=== PATIENT | female | born 1990 | race Caucasian/White ===

== ENCOUNTER → 2019-09-20 14:50 | Outpatient (CLI) | payer OTHER, SELFPAY ==
[2019-09-20 16:35] LABS: Hematocrit 35.6 % (36-46); Hemoglobin 12.5 g/dL (12.0-16.0)
[2019-09-20 17:16] LABS: GTT (PREG) 1 Hour PP 50gm Dose 94 mg/dL (76-139)
== END ==
PROVIDERS: PCP Family Medicine; Visit Provider Obstetrics & Gynecology
DX: Z34.90 Encounter for supervision of normal pregnancy, unspecified, unspecified trimester (principal)
CPT/HCPCS: 36415; 82950; 85014; 85018

== ENCOUNTER → 2019-11-22 14:45 | Outpatient (CLI) | payer OTHER, SELFPAY ==
[2019-11-23 16:58] LABS: Strep Grp B PCR NEG for Grp B Strep
== END ==
PROVIDERS: PCP Family Medicine; Visit Provider Obstetrics & Gynecology
DX: Z34.03 Encounter for supervision of normal first pregnancy, third trimester (principal); Z3A.35 35 weeks gestation of pregnancy
CPT/HCPCS: 87653

== ENCOUNTER 2019-12-23 15:38 | Outpatient (CLI) | payer OTHER, SELFPAY ==
--- NOTE | 2019-12-25 09:27 | PM.OBTRLD ---
Visit Information Visit Information Date of evaluation: 12/23/19 Primary OB Provider: Kalee Borjas Reason for Evaluation: Yes non-stress test Comments/Additional reasons for admission: Patient presents after 04/25 BPP Vital Signs Vital Signs: BP 136/80 per nursing staff telephone report, [facility] Surgical History History of appendectomy (Acute ~02/16/14) History of placement of ear tubes (Acute ~2007) [place] teeth extracted (Acute ~2016) Family History Sister Seizures Hyperlipidemia Father Hyperlipidemia Social History marital status: household members: spouse education level: college occupational status: employed current occupational exposures/hazards: No special dada needs: No Smoking Status: Never smoker Review of Systems Constitutional Constitutional: Reports system reviewed and no additional complaints, except as documented Evaluation Evaluation Baseline heart rate: 135 Variability: Average (6-10) monitor accelerations: Present monitor decelerations: Absent Category of Tracing: I Diagnosis, Plan/Disposition Plan/Disposition Plan: Home with scheduled f/u in3 days OB Disposition: home
== END 2019-12-23 16:29 | disposition home or self-care (01) ==
LOC: LABOR 15:44 → OB 12-24 10:46
PROVIDERS: PCP Family Medicine; Referring Provider Obstetrics & Gynecology; Visit Provider Obstetrics & Gynecology
DX: O48.0 Post-term pregnancy (principal); Z3A.40 40 weeks gestation of pregnancy
CPT/HCPCS: 59025; G0378; G0379

== ENCOUNTER → 2019-12-26 11:36 | Outpatient (CLI) | payer OTHER, SELFPAY | PROVIDERS: PCP Family Medicine; Referring Provider Obstetrics & Gynecology; Visit Provider Obstetrics & Gynecology | DX: O48.0 Post-term pregnancy (principal); Z3A.40 40 weeks gestation of pregnancy ==

== ENCOUNTER 2019-12-26 11:40 | Outpatient (CLI) | payer OTHER, SELFPAY ==
--- NOTE | 2019-12-26 11:42 | DI.US.S_ITS ---
PROCEDURE: US OB BIOPHYSICAL PROFILE INDICATIONS: POST DATES OUTSIDE/PRIOR DATING DATA: Last menstrual period (LMP): 03/17/2019. LMP-based estimated date of delivery (SANDRA): 12/22/2019. First dating scan (date and location): n.a. Estimated date of delivery (SANDRA) from first dating scan: n.a. TECHNIQUE: Real-time scanning was performed of the fetus for biophysical profile, with image documentation. Color and pulse Doppler interrogation was also performed of the umbilical artery near its insertion into the placenta. Endovaginal scanning: none. COMPARISON: [facility], , OB >= 14 WEEKS FETUS, 11/27/2019, 8:32. FINDINGS: General: A single living intrauterine gestation is present. Presentation: Vertex. Placenta: Placental position is posterior right, without previa. Amniotic fluid index: 13.0 cm, normal range is 5-24 cm; largest pocket 5.1 cm. heart rate: 153 beats per minute. Maternal cervical canal: not visualized. Estimated gestational age (clinical): 40 weeks 4 days. Biophysical profile: Tone: 2 points. Movement: 2 points. Respiration: 2 points. Largest pocket of fluid: 2 points. IMPRESSION: 1. A single living intrauterine gestation. 2. biophysical profile 8 out of 8. Dictated by: Amelia Deng M.D. on 12/26/2019 at 13:36 Approved by: Amelia Deng M.D. on 12/26/2019 at 13:40
== END 2019-12-26 13:30 | disposition home or self-care (01) ==
LOC: LABOR 12:21 → OB 12-27 08:29
PROVIDERS: PCP Family Medicine; Referring Provider Obstetrics & Gynecology; Visit Provider Obstetrics & Gynecology
DX: O48.0 Post-term pregnancy (principal); Z3A.40 40 weeks gestation of pregnancy
CPT/HCPCS: 59025; 76819; G0378; G0379

== ENCOUNTER → 2019-12-27 15:34 | Outpatient (CLI) | payer OTHER, SELFPAY ==
[2019-12-29 06:14] LABS: COVID19 Sendout Not Detected (Not Detected)
== END ==
PROVIDERS: PCP Family Medicine; Visit Provider Registered Nurse
DX: Z20.828 Contact with and (suspected) exposure to other viral communicable diseases (principal)
CPT/HCPCS: 87635

== ENCOUNTER 2019-12-29 18:55 | Inpatient (IN) | payer OTHER, SELFPAY ==
[2019-12-29] MEDS: DINOPROSTONE VAG (CERVIDIL) 10 MG VAG (20:09)
[2019-12-29 20:21] LABS: Add Manual Diff / Slide Review NO; Basophils Absolute Auto 200 /uL (0-100); Basophils Percent Auto 1.1 % (0-2); Eosinophils Absolute Auto 100 /uL (0-450); Eosinophils Percent Auto 0.9 % (2-4); Hematocrit 38.1 % (36-46); Hemoglobin 13.1 g/dL (12.0-16.0); Lymphocytes Absolute Auto 1900 /uL (1100-4500); Lymphocytes Percent Auto 12.9 % (25-40); Mean Corpuscular HGB Conc 34.4 % (30-36); Mean Corpuscular Hemoglobin 31.2 PG (26-34); Mean Corpuscular Volume 90.6 fL (80-100); Monocytes Absolute Auto 1100 /uL (0-900); Neutrophils Absolute Auto 11800 /uL (1500-7000); Neutrophils Percent Auto 78.1 % (50-75); Platelet Count 337 X10^3/uL (150-400); Red Cell Distribution Width 13.1 % (11.6-14.8)
[2019-12-29 21:46] VITALS: BP 132/79
--- NOTE | 2019-12-30 08:08 | P.HPOB_ITS ---
OB HPI Date/Time Date of admission: 12/29/19 Date Patient Seen: 12/30/19 Time Patient Seen: 07:45 History of Present Condition Chief complaint: EVAL OF LABOR : 1 Para: 0 Estimated Date of Delivery: 12/22/19 Estimated Gestational Age (weeks): 41 Narrative: Carmelita Westfall is a 29 year old @41+1 admitted for postdates induction of labor. She reports feeling well on admission, with no complaints obstetrical or otherwise. She was induced with a cervidil which spontaneously fell out at 1AM, at which point she was jose angel q3-4 and was 3.5cm per nursing report. She SROMed for light meconium between midnight and 1AM. She received an epidural early this AM when contractions became more intense. She reports feeling well now, with no obstetrical complaints and no PIH symptoms. Her has been uncomplicated except for a transfer of care in the mid 2nd trimester, with appropriate and reassuring postdates testing. Her history is otherwise significant only for a laprascopic appendectomy in 2013. Indications Indication for induction OB: post dates History of Present care: good care Dating criteria: LMP confirmed by 1st trimester US Ultrasounds: normal 1st trimester US and normal mid trimester US Obstetrical complications: none Medical complications: none Preadmission Labs Blood type: O (+) positive -: Antibody screen: negative, GBS status: negative, HBsAG: negative, HIV: negative and RPR/VDLR: negative -: Chlamydia screen: not detected and Gonorrhea screen: not detected -: Rubella: immune and Varicella: immune Integrated screen: negative 1 hr GTT: 94 Evaluation Evaluation Baseline heart rate: 150 Variability: Average (6-10) monitor accelerations: Absent monitor decelerations: Absent Category of Tracing: I Cervical dilation (cm): 4 Cervical effacement (%): 100 station: -1 Laboratory results: Laboratory Tests 12/29/19 12/29/19 20:10 20:10 WBC 15.0 H RBC 4.20 Hgb 13.1 Hct 38.1 MCV 90.6 MCH 31.2 MCHC 34.4 RDW 13.1 Plt Count 337 Neut % (Auto) 78.1 H Lymph % (Auto) 12.9 L [place] % (Auto) 7.0 Eos % (Auto) 0.9 L Baso % (Auto) 1.1 Neut # (Auto) 79708 H Lymph # (Auto) 1900 [place] # (Auto) 1100 H Eos # (Auto) 100 Baso # (Auto) 200 H Blood Type O Positive Antibody Screen Negative Non-invasive Membranes Rupture Test: positive (performed overnight) [facility] Surgical History History of appendectomy (Acute ~02/16/14) History of placement of ear tubes (Acute ~2007) [place] teeth extracted (Acute ~2016) Family History Sister Seizures Hyperlipidemia Father Hyperlipidemia Social History marital status: household members: spouse education level: college occupational status: employed current occupational exposures/hazards: No special dada needs: No Smoking Status: Never smoker Meds Home Medications and Allergies Home Medications Medication Instructions Recorded Confirmed Type prenat.vits,karen,dad-vlov-vtaxa 1 tab PO DAILY 08/20/19 12/04/19 History Double Electric breast Pump and #1 each 11/15/19 12/04/19 Rx Supplies Breast Pump #1 ea 11/25/19 12/04/19 Rx Allergies Allergy/AdvReac Type Severity Reaction Status Date / Time No Known Drug Allergies Allergy Verified 12/29/19 19:20 Review of Systems Constitutional Constitutional: Reports system reviewed and no additional complaints, except as documented Cardiovascular Cardiovascular: Reports system reviewed; no additional complaints, except as d ocumented Respiratory Respiratory: Reports system reviewed and no additional complaints, except as documented Gastrointestinal Gastrointestinal: Reports system reviewed and no additional complaints, except as documented Genitourinary Genitourinary: Reports system reviewed and no additional complaints, except as documented Exam Vital Signs (past 8 hours): 111/68, HR 65 Const General: cooperative, healthy appearing and comfortable GI Palpation: soft and No tender External Female Exam: external appearance normal Objective Labs Result Diagrams: 12/29/19 20:10 Labs: Laboratory Results - last 24 hr 12/29/19 12/29/19 20:10 20:10 WBC 15.0 H RBC 4.20 Hgb 13.1 Hct 38.1 MCV 90.6 MCH 31.2 MCHC 34.4 RDW 13.1 Plt Count 337 Neut % (Auto) 78.1 H Lymph % (Auto) 12.9 L [place] % (Auto) 7.0 Eos % (Auto) 0.9 L Baso % (Auto) 1.1 Neut # (Auto) 22279 H Lymph # (Auto) 1900 [place] # (Auto) 1100 H Eos # (Auto) 100 Baso # (Auto) 200 H Blood Type O Positive Antibody Screen Negative Assessment and Plan Assessment and Plan Assessment and Plan narrative: This patient is a 29yo @41+1 presenting for IOL, with cervidil overnight and SROM for light mec. Patient has EFW with reassu ring features, for repositioning, IVF, and pitocin per protocol this AM. - cEFM, toco - clear liquid diet - pitocin per protocol - CBC, T&S ordered
[2019-12-30] MEDS: LACTATED RINGERS 1,000 ML 100 ML IV ×2 (08:43→13:30)
[2019-12-30] MEDS: OXYTOCIN PREMIX 30 UNIT/500 ML PLAST..BAG IV (08:44)
--- NOTE | 2019-12-30 09:59 | PM.OBPNLAB ---
Date/Time Date Patient Seen: 12/30/19 Time Patient Seen: 10:15 Pain Control Pain control: epidural Pelvic Exam Dilation (cm): 5 Effacement (%): 100 station: -1 Amniotic membrane status: Ruptured Comments: forebag ruptured Contractions Contractions on admission: irregular Pitocin rate (mU/min): 4 Contraction frequency (min): 4 Contraction pattern: Irregular Status status: Category ll Heart Rate Baseline: 150 Monitor Accelerations: Absent Monitor Decelerations: Late Monitor Variability: Minimal Comments: Pitocin turned off, patient rolled, O2 via nasal cannula applied Assessment and Plan Assessment: induction ongoing Comments: Patient with cat 2 EFM with concerning features. Pitocin turned off, conservative measures as above. Minimal cervical change. Discussed with patient that baby would be allowed to recover, with further plan to be discussed once reassuring features return.
--- NOTE | 2019-12-30 12:09 | P.PNOB_ITS ---
Date/Time Date Patient Seen: 12/30/19 Time Patient Seen: 12:09 Pain Control Pain control: epidural Comments: VSS Pelvic Exam Dilation (cm): 5 Effacement (%): 100 station: -1 Amniotic membrane status: Ruptured (light meconium) Comments: RUTH presentation, ballotable Contractions Pitocin rate (mU/min): 0 Contraction frequency (min): 5 Contraction pattern: Regular Status status: Category ll Heart Rate Baseline: 155 Monitor Accelerations: Absent Monitor Decelerations: Late Monitor Variability: Moderate Comments: Intermittent shallow late decels, moderate variability, +scalp stim Assessment and Plan Assessment: other Plan: Comments: This patient continues to have a cat 2 EFM, though with improved moderate variability. The pitocin is now off, the patient is rolled to her side, and is receiving nasal O2. She has made minimal cervical change on her own this morning, and her EFM is such that pitocin could not be safely resumed. We discussed the option of starting pitocin but the expected result of a tracing with more concerning features. We discussed proceeding to section, with the risk of infection, bleeding, and damage to bowel and bladder, with risks in future pregnancies including placentation abnormalities and risks of vs. repeat c section. The patient and her partner vocalized understanding, and all questions were answered and consent signed. The patient reports that she would like to proceed with the method of delivery with the least risk to the fetus, which at this time is C section. - OR and anesthesiologist production packager notified - For 2g IV ancef, 500mg IV azithromycin.
[2019-12-30] MEDS: AZITHROMYCIN 500 MG in DEXTROSE 5% IN WATER 250 ML IV (12:48)
--- NOTE | 2019-12-30 13:01 | SUR.OPER ---
Supine on Padded OR bed, head on pillow, safety belt at thigh, arms secured on padded arm boards at <90 degrees abduction. Bump under right buttock. Legs uncrossed with pillow under knees, gel pad to heels, tape over blanket to lower legs.
--- NOTE | 2019-12-30 13:03 | SUR.OPER ---
FHT's 152. Cord blood x2 and placenta to OB with OB Rn
[2019-12-30] MEDS: CEFAZOLIN 2 GM/100 ML FROZ.PIGGY IV (13:05)
--- NOTE | 2019-12-30 13:15 | SUR.OPER ---
TOB live female [id number]
[2019-12-30 13:59] VITALS: BP 112/62; PULSE 85; RESP 19; TEMP 37; O2SAT 96
--- NOTE | 2019-12-30 14:03 | PM.OP.1 ---
Operative Date/Time/Diagnoses Date of procedure: 12/30/19 Time of procedure: 14:03 Pre-op diagnosis: Cat 2 EFM, intolerance of labor Post-op diagnosis: same Procedure & Clinicians Procedure: primary section Same procedure as scheduled: Yes Indications: intolerance of labor, cat 2 EFM Surgeon: Kalee Borjas Buy Boat Operator: Yvette Holcomb Anesthesia Type: Epidural Operative Notes Findings: Normal uterus, tubes, and ovaries. Female in cephalic presentation. Apgars 8+8, weight 7#6. Closure Type: primary Specimen(s): other (Cord blood gas) Estimated Blood Loss (mL): 500 Procedure in detail: BL: 500ccs Fluids: 1500ccs LR UOP: 200ccs Findings: Female infant in cephalic presentation, Apgars 8+8, weight 7#6, normal uterus, tubes, ovaries. Procedures: The patient was taken to the operating room where epidural anesthesia was bolused and found to be adequate. She was prepped and draped in the normal sterile fashion in the dorsal supine position with a leftward tilt. A Pfannenstiel skin incision was made with a scalpel and carried through to the underlying layer of fascia. The fascia was incised in the midline and the incision extended laterally with Saeed scissors. The inferior aspect of this incision was grasped with Saumya clamps, elevated. and the underlying rectus muscles dissected off bluntly. Attention was then turned to the superior aspect of this incision which, in a similar fashion, was grasped, tented up with the Saumya clamps, and the rectus muscles dissected off bluntly. The rectus muscles were then in the midline, and the peritoneum identified, tented up, and entered sharply with Metzenbaum scissors. The peritoneal incision was extended superiorly and inferiorly with good visualization of the bladder. The bladder blade was inserted and the vesicouterine peritoneum identified, grasped with pickups, and entered sharply with the Metzenbaum scissors. This incision was extended laterally, and the bladder flap created digitally. The bladder blade was then reinserted and the lower uterine segment incised in transverse fashion with the scalpel. The uterine incision was bluntly extended laterally. The bladder blade was removed, and the 's head delivered atraumatically. After 45 seconds of delayed cord clamping, the cord was clamped and cut. The nose and mouth were suctioned with a bulb syringe, and the was handed off to awaiting pediatricians. The placenta was then removed spontaneously, and the uterus was exteriorized and cleared of all clots and debris. The uterine incision was repaired with 1-0 chromic in a running, locked fashion a 2nd layer of the same suture was used to obtain excellent hemostasis. The uterus was returned to the abdomen, and the gutters were cleared of all clots and debris. The bladder flap was closed with 3-0 vicryl in a running fashion, the peritoneum was closed with 3-0 Vicryl, and the fascia reapproximated with 0 Vicryl in a running fashion. The subcutaneous layer was placed with 3 0 Vicryl in an interrupted fashion and the skin was closed with 4-0 biosyn in a running fashion. The patient tolerated the procedure well sponge lap and needle counts were correct x2. 2 g of Ancef and 500mg Azithromycin were given at commencement of the case. The patient was taken to the recovery room in stable condition. Complications: none Post-operative Condition: stable Disposition: PACU Plan for aftercare: Transfer to &D
[2019-12-30 14:04] VITALS: BP 124/65; PULSE 80; RESP 16; O2SAT 97
[2019-12-30 14:09] VITALS: BP 126/63; PULSE 86; RESP 16; O2SAT 98
[2019-12-30 14:12] VITALS: BP 104/63; PULSE 78; RESP 17; O2SAT 98
[2019-12-30 14:14] VITALS: BP 114/63; PULSE 82; RESP 16; O2SAT 99
[2019-12-30] MEDS: ONDANSETRON 4 MG/2 ML INJ IV (14:24)
[2019-12-30 14:45] VITALS: BP 124/65; PULSE 72; RESP 16; O2SAT 99
--- NOTE | 2019-12-30 15:00 | SUR.PHASEI ---
late entry 1359: upon arrival to PACU , patient with GCS 15; patient noted to have mild drooping of right eye and c/o tingling to right arm. Anesthesia aware of symptoms. Patient denies headache or blurred vision. 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 Patient has limited movement to lower extremities due to epidural given pre-op. Will continue to monitor.
--- NOTE | 2019-12-30 15:04 | SUR.PHASEI ---
1415 late entry. Patient still c/o tingling to right arm but states that symptoms seem to be resolving some. Droop remains to right eye but symptoms have not worsened since first assessment. GCS 15. VSS.
--- NOTE | 2019-12-30 15:05 | SUR.PHASEI ---
1440 late entry: Neuro remains as previous with no worsening of symptoms. Patient states that right arm tingling seems to be subsiding. Right eye droop remains same as previous. No redness or drainage noted. Denies headache or blurred vision.
[2019-12-30] MEDS: KETOROLAC 30 MG/ML VIAL IV (18:00)
[2019-12-31] MEDS: KETOROLAC 30 MG/ML VIAL IV ×3 (00:26→15:06)
[2019-12-31 07:15] LABS: Hematocrit 31.2 % (36-46); Hemoglobin 10.7 g/dL (12.0-16.0)
[2019-12-31] MEDS: DOCUSATE 250 MG CAPSULE PO (07:47)
--- NOTE | 2019-12-31 10:06 | PM.OBPN.1 ---
Subjective - OB Subjective Patient comments: no complaints, pain well controlled, incisional pain, tolerating diet and flatus present baby status: doing well and nursing well [place] feeding status: exclusively breast feeding Narrative: This patient is a 29yo POD#1 s/p pCS for intolerance of labor in the setting of a postdates induction. The patient reports feeling well this AM, just finished a shower, is ambulating well, eating, passing gas and voiding, has mild lochia. Patient is without complications. Patient considering discharge today vs. tomorrow, discussed postoperative precautions and discharge precautions along with incision care. Date Patient Seen: 12/31/19 Time Patient Seen: 10:15 Exam Vital Signs (past 8 hours): 114/63, HR 78, T 98.8F Oxygen Delivery Method Room Air Const General: cooperative, healthy appearing and comfortable Resp Effort & Inspection: normal respiratory effort Auscultation: clear to auscultation bilaterally Cardio Rate: regular rate Rhythm: regular rhythm GI Inspection: incision (c/d/i, covered by clean bandage) Palpation: soft and No tender Skin General: no rashes or lesions noted Objective Labs Result Diagrams: 12/31/19 07:09 Labs: Laboratory Results - last 24 hr 12/31/19 07:09 Hgb 10.7 L Hct 31.2 L Assessment & Plan Plan day: 1 plan OB: routine postop care Comments: Patient reports feeling well, uneventful recovery. Continue current management. Time Spent With Patient Time: Total time spent is greater than 50% in coordination of care (as documented) at patient's floor/unit and/or counseling patient: Time with patient: 15-24 minutes
[2019-12-31 18:11] VITALS: TEMP 37.9
[2019-12-31] MEDS: ACETAMINOPHEN 325 MG TABLET 650 MG PO (18:11)
[2019-12-31] MEDS: IBUPROFEN 600 MG TABLET PO (23:01)
[2020-01-01] MEDS: IBUPROFEN 600 MG TABLET PO (08:35)
[2020-01-01] MEDS: DOCUSATE 250 MG CAPSULE PO (08:36)
--- NOTE | 2020-01-01 09:12 | P.PNOB_ITS ---
Subjective - OB Subjective Patient comments: no complaints, pain well controlled, incisional pain, tolerating diet and flatus present baby status: doing well [place] feeding status: exclusively breast feeding Narrative: Patient is POD#2 s/p pCS for intolerance of labor in the setting of postdates induction. Patient is only using motrin for pain control, reports good pain control. Is ambulating, voiding, tolerating PO. Mild lochia. No other complaints. Date Patient Seen: 01/01/20 Time Patient Seen: 09:12 Exam Vital Signs (past 8 hours): T 98.8F, 123/70, HR 73. Per nursing staff, mildly elevated temps overnight on all patients, resolved with new thermometer and no clinical signs of infection. Oxygen Delivery Method Room Air Const General: cooperative, healthy appearing, comfortable and well developed Resp Auscultation: clear to auscultation bilaterally Cardio Rate: regular rate Rhythm: regular rhythm GI Inspection: incision (c/d/i, covered by clean bandage) Palpation: soft and tender (mild, fundal) Objective Labs Result Diagrams: 12/31/19 07:09 Assessment & Plan Plan day: 2 plan OB: routine postop care Comments: Patient is recovering well, meeting postoperative goals without complication. Postoperative instructions were discussed, and the patient vocal ized understanding. Patient will return to clinic in 1 week for incision check, encouraged to call or come in with any questions or new symptoms. Time Spent With Patient Time: Total time spent is greater than 50% in coordination of care (as documented) at patient's floor/unit and/or counseling patient: Time with patient: 15-24 minutes
--- NOTE | 2020-01-01 09:40 | PM.OBDS.1 ---
Discharge Providers Provider Date of admission: 12/29/19 18:55 Discharge Date: 01/01/20 Primary care physician: Ronda Kramer DO Consults: 12/30/19 15:37 Consult to Roving Teller Routine Comment: Discharge provider: Kalee Borjas MD Summary Hospital Course Date Patient Seen: 01/01/20 Time Patient Seen: 09:15 Procedures: primary section Hospital Course: This patient is a 29yo G1 now P1, admitted for postdates induction after an otherwise uncomplicated . Patient had persistent cat 2 tracing in the setting of 5cm dilation, despite all conservative interventions and despite onset of spontaneous labor after induction. She was taken for an uncomplicated primary section and delivered of a healthy baby girl, weight 7#6, apgars 8+8. Her recovery was uneventful, and she was discharged with routine precautions on POD#2. Peripartum Data Infant Delivery Method: Section complications: none [place]: Gender: Female Disposition of : home Discharge Diagnosis (1) deliv NOS-unsp: Start Date: 12/30/19 Start Time: 12:00 Status: Acute Status at Discharge Cognitive/behavioral status at discharge: oriented Functional status at discharge: independent ambulation Overall status at discharge: patient is progressing back to baseline Time Spent with Patient Time attestation: Total time spent providing and/or coordinating discharge services: Time spent: Greater than 30 minutes Objective Labs Result Diagrams: 12/31/19 07:09 Exam Vital Signs (past 8 hours): Oxygen Delivery Method Room Air Discharge Plan Discharge Plan Patient Disposition: Home Discharge orders & Medications Prescriptions: New oxycodone 5 mg tablet 5 mg PO Q8H PRN (Reason: pain) Qty: 7 RF: 0 Continued (DME) Double Electric breast Pump and Supplies See Rx Instructions .ROUTE .MEDSUPPLY Qty: 1 RF: 0 (DME) Breast Pump Qty: 1 RF: 0 prenat.vits,karen,zhd-wzfi-qyojx Tablet 1 tab PO DAILY RF: 0 Follow up/Referrals: Kalee Borjas MD [Physician] - 2 Weeks (Incision check: please f/u w/ Dr. Borjas on January 07 @ 10:15 am. Please wait in your car and call [phone] on arrival.) Ronda Kramer DO [Primary Care Provider] - Diet/Activity/Treatments Diet: Regular Activity: No lifting more than 10 lbs for 6 weeks. Nothing in the vagina for 6 weeks. If you have increasing bleeding, fevers, chills, nausea, vomiting, headaches, or any other symptoms or concerns, call the clinic number or come to the emergency room. Skin/Wound/Dressing Care Dressing: To be removed in the office in 1 week. Visit Report/Discharge Packet Instructions: DI for Stand Alone Forms: Discharge: Care Discharge Data Primary Care Provider: Ronda Kramer
== END 2020-01-01 11:37 | disposition home or self-care (01) | DRG 788 ==
PROVIDERS: Admitting Provider Obstetrics & Gynecology; PCP Family Medicine; Referring Provider Obstetrics & Gynecology; Visit Provider Obstetrics & Gynecology
PROC: 10D00Z1 Extraction of Products of Conception, Low, Open Approach (ICD-10-PCS; CPT 59514; principal; 2019-12-30 12:00)
DX: O48.0 Post-term pregnancy (principal); O36.8330 Maternal care for abnormalities of the fetal heart rate or rhythm, third trimester, not applicable or unspecified; Z3A.41 41 weeks gestation of pregnancy; Z37.0 Single live birth; O77.0 Labor and delivery complicated by meconium in amniotic fluid
CPT/HCPCS: 01967; 01968; 36415; 59050; 59410; 59514; 84112; 85014; 85018; 85025; 86850; 86900; 86901; G0379; J0330; J0690; J1885; J2274; J2405; J2590; J3010

== ENCOUNTER → 2020-01-23 14:59 | Outpatient (CLI) | payer OTHER, SELFPAY ==
--- NOTE | 2020-01-23 15:00 | DI.US.S_ITS ---
PROCEDURE: US ABDOMEN LIMITED INDICATIONS: RIGHT UPPER QUADRANT PAIN TECHNIQUE: Real-time focused scanning was performed of the abdomen, with image documentation. COMPARISON: None. FINDINGS: Liver measures 17.6 cm in length. No focal hepatic lesion identified. There is normal echotexture. Gallbladder unremarkable. No wall thickening, pericholecystic fluid or sonographic Harden sign. No intra-or extrahepatic bile duct dilatation seen. The pancreas is grossly unremarkable IMPRESSION: Negative examination. Normal appearance of the gallbladder Dictated by: Jabier Knight M.D. on 01/23/2020 at 16:22 Approved by: Jabier Knight M.D. on 01/23/2020 at 16:23
== END ==
PROVIDERS: PCP Family Medicine; Referring Provider Obstetrics & Gynecology; Visit Provider Obstetrics & Gynecology
DX: R10.11 Right upper quadrant pain (principal)
CPT/HCPCS: 76705

== ENCOUNTER → 2023-01-30 14:27 | Outpatient (CLI) | payer OTHER, SELFPAY | PROVIDERS: PCP Family Medicine; Visit Provider Nurse Practitioner Family | DX: J02.9 Acute pharyngitis, unspecified (principal) | CPT/HCPCS: 87070; 87077; 87147 ==